=== PATIENT | female | born 1950 | race Caucasian/White ===

== ENCOUNTER 2016-06-14 18:13 | Emergency (ER) | payer MEDICARE ==
[~2016-06-14] VITALS: Ht 162.6 cm; Wt 54.5 kg
[2016-06-14 18:18] VITALS: BP 154/76; PULSE 64; RESP 16; O2SAT 98
[2016-06-14 19:21] LABS: BASOPHILS % (AUTO) 0.5 % (0-3); MONOCYTES % (AUTO) 10.2 % (4-12); Mean Corpuscular Hemoglobin 32.6 pg (27.0-35.0); Mean Corpuscular Volume 93.7 fL (81-100); NEUTROPHILS % (AUTO) 58.1 % (40-74); Platelet Count 215 bil/L (150-400)
--- NOTE | 2016-06-14 19:37 | DRSVH ---
PROCEDURE: X-RAY CHEST, TWO VIEWS ([id number]) INDICATIONS: chest pain TECHNIQUE: 2 views of the chest were acquired. COMPARISON: None. FINDINGS: Surgical changes and devices: None. Lungs and pleura: No pleural effusions or pneumothorax. Lungs are clear. Mediastinum: Mediastinal contours are normal. Heart size is normal. Bones and chest wall: No suspicious bony abnormalities. Soft tissues appear unremarkable. IMPRESSION: No acute cardiopulmonary disease process. Dictated by: Laxmi Montoya MD, PhD on 06/14/2016 at 19:36 Approved by: Laxmi Montoya MD, PhD on 06/14/2016 at 19:36
[2016-06-14 19:56] LABS: Magnesium 2.2 mg/dL (1.6-2.6)
[2016-06-14 20:00] LABS: TROPONIN T < 0.010 ug/L (0.0-0.011)
--- NOTE | 2016-06-14 20:55 | ED.REPORT ---
HPI-Chest Pain 40 and Over Date of Service Jun 14, 2016 ED Provider: Emeli Cisneros MD The patient is a 65 year old female with history of hypertension who was sent to the emergency department from urgent care for diffuse chest tightness that began earlier today. Yesterday the patient noticed intermittent numbness to her left arm up to her ear, and nausea. Today the numbness has been constant. She has not experienced similar symptoms in the past. The patient states she has been under a lot of stress over the last 4 days. The patient has chronic hip pain that has been more severe over the last few days. She took 324 mg aspirin 3 hours prior to arrival. She denies shortness of breath, vomiting, diarrhea, diaphoresis, fever, chills or lower extremity swelling. Nursing Notes Stated Complaint: CHEST PAIN/LEFT ARM NUMBNESS/SENT FROM Chief Complaint: Chest Pain Nursing Notes Reviewed: Yes Allergies: Coded Allergies: No Known Allergies (Unverified , 06/14/16) General Time Seen by MD: 20:54 Chief Complaint Chest pain Hx Obtained From: Patient Arrived By: Walk-in Sudden in Onset?: No Onset Occurred: 5 - 8 hours ago Symptom Duration: Since onset Location: : Chest left: Chest right Quality: Heaviness, Painful Radiation: : Arm left (numbness) Severity: Current: Mild Severity: Maximum: Moderate Recent Healthcare: No recent hospitalization, Recent doctor visit Similar Sx Previous: No Past Medical History Past Medical History Hypertension Family History Noncontributory Smoking History Unknown if Ever Smoker Social History Other Social History: Good social support, Local resident Ambulatory Status Independent Review of Systems Constitutional: Denies: Chills, Fever Respiratory: Denies: Shortness of breath Cardiovascular: Reports: Chest pain GI: Reports: Nausea, Denies: Diarrhea, Vomiting Musculoskeletal: Denies: Extremity swelling Skin: Denies Diaphoresis Neurologic: Reports: Numbness Complete sys rev & neg: except as marked. Physical Exam Initial Vital Signs Vital Signs (First) Date Time Temp Pulse Resp B/P Pulse Ox O2 Delivery O2 Flow Rate FiO2 06/14/16 18:18 36.3 64 16 154/76 98 Room Air Initial VS: Reviewed Head / Eyes: Atraumatic, Normocephalic, PERRL ENT: Mucous membranes moist, Conjunctiva normal, No scleral icterus Neck: Supple, Non-tender, Full range of motion Lymphatic: No lymphadenopathy Extremities: Vascular intact, Neuro intact, No swelling, No tenderness Skin: Warm, Dry, No cyanosis Neurologic: Alert, Oriented, Nonfocal Psychiatric: Mood/affect normal, Behavior normal, Normal thought content General/Constitutional: Awake, Alert, No acute distress, Well appearing Respiratory / Chest: Atraumatic, Breath sounds NL, Breath sounds = bilat, No respiratory distress, No rales, No rhonchi, No wheezing, No stridor, No chest tenderness Cardiovascular: Heart rate NL, Regular rhythm, Heart sounds NL, No murmurs, Peripheral circulation NL, Pulses = bilaterally, No gross BP differential Abdomen: Atraumatic, Soft, Non-tender, McBurney's non-tender, No guarding, No rebound, BS normoactive, No distention, No hernia, No palpable mass Interpretation & Diagnostics Lab Results Interpretation Result Diagram: 06/14/165 06/14/16 1905 Test 06/14/16 19:05 06/14/16 22:30 White Blood Count 8.4th/mm3 (3.8-10.1) Red Blood Count 4.29mil/mm3 (3.90-5.20) Hemoglobin 14.0g/dL (12.0-15.6) Hematocrit 40.2% (35.0-46.0) Mean Corpuscular Volume 93.7fL (81-100) Mean Corpuscular Hemoglobin 32.6pg (27.0-35.0) Mean Corpuscular Hemoglobin Concent 34.8% (32.0-37.0) Red Cell Distribution Width 12.0% (12.3-15.4) Platelet Count 215bil/L (150-400) Neutrophils (%) (Auto) 58.1% (40-74) Lymphocytes (%) (Auto) 30.0% (14-46) Monocytes (%) (Auto) 10.2% (4-12) Eosinophils (%) (Auto) 1.0% (0-5) Basophils (%) (Auto) 0.5% (0-3) Sodium Level 136mEq/L (134-144) Potassium Level 4.5mEq/L (3.5-5.2) Chloride Level 96mEq/L (97-108) Carbon Dioxide Level 25mmol/L (18-29) Blood Urea Nitrogen 17mg/dL (8-27) Creatinine 0.55mg/dL (0.57-1.00) Estimat Glomerular Filtration Rate 158mL/min (>59) Glucose Level 100mg/dL (60-99) Calcium Level 9.1mg/dL (8.5-10.1) Magnesium Level 2.2mg/dL (1.6-2.6) Total Bilirubin 0.4mg/dL (0.0-1.2) Aspartate Amino Transf (AST/SGOT) 24U/L (0-50) Alanine Aminotransferase (ALT/SGPT) 21U/L (0-32) Alkaline Phosphatase 54U/L (25-165) Total Protein 7.2g/dL (6.4-8.4) Albumin 4.4g/dL (3.4-5.0) Hold Pena Top Tube Received (Received) Troponin T 0.010ug/L (0.0-0.011) ECG Interpretation ECG Interpretation: Normal sinus rhythm with a rate of [address] elevation T wave inversion in V1 Time: 20:55 Interpreted by: ED physician X-Ray Chest Interpretation Chest Xray Interpretation: IMPRESSION: No acute cardiopulmonary disease process. Dictated by: Laxmi Montoya MD, PhD on 06/14/2016 at 19:36 Interpretation / Wet Read by: Interpret - Radiologist Re-Eval/Medical Decision Med Decision/Clinical Course 65-year-old female with past medical history of hypertension here with chest tightness which has been constant for the last several days without associated exertion. Differential diagnosis includes but is not limited to ACS versus pneumonia versus PE versus aortic dissection. Patient is low risk by heart score, and has 2 negative troponins. Her EKG is unremarkable. Her chest x-ray is normal. She is not PERC negative secondary to her age, however, she is not tachycardic, hypoxic, has no leg swelling, and has no risk factors for PE. At this time, I do not feel she requires a d-dimer to rule out PE. Additionally, her exam and history are not consistent with aortic dissection. I given her very strict return precautions and she is amenable to discharge at this time with follow-up with her primary care physician. Source of Hx: Old records Time of Eval: 22:15 Re-Evaluation/Progress Note: Rechecked the patient. Discussed workup results. Time of Eval: 23:15 Re-Evaluation/Progress Note: Discussed repeat troponin results, diagnosis, and plan for discharge. All questions were addressed. Counseled Regarding: Diagnosis, Lab results, Need for follow-up, When/why to return to ED Discharge & Departure Primary Impression: Non-cardiac chest pain Disposition: Home Discharge Condition All VS Reviewed: Yes Condition: Stable Patient Instructions: Chest Pain (ED) Additional Instructions: Your workup today is reassuring. There is no evidence of an acute cardiac event. Call the residency clinic or your regular doctor's office tomorrow to schedule a followup appointment for early next week. Return to the emergency department for any new or concerning symptoms. Referrals: [facility] Residency Clinic Scribe Attestation Portions of this note were transcribed by Ana Johnson. I, Dr. Cisneros personally performed the history, physical exam and medical decision-making; I reviewed and confirmed the accuracy of the information in the transcribed note. Signed by : Eve Soares, 06/14/2016 and 2320. Emeli Cisneros MD Jun 14, 2016 20:55 Ana Johnson Jun 14, 2016 21:00
[2016-06-14 21:21] VITALS: PULSE 65; RESP 16; O2SAT 97
[2016-06-14 23:29] VITALS: BP 126/78; PULSE 60; RESP 16; O2SAT 98
== END 2016-06-14 23:30 | disposition home or self-care (01) ==
LOC: SED 18:13
DX: R07.89 Other chest pain (principal); I10 Essential (primary) hypertension
CPT/HCPCS: 36415; 71020; 80053; 83735; 84484; 85025; 93005; 99284; G0463